=== PATIENT | male | born 1945 | race Caucasian/White ===

== ENCOUNTER 2016-12-08 21:27 | Emergency (ER) | payer OTHER, MEDICARE ==
[~2016-12-08] VITALS: Ht 170.2 cm; Wt 73.0 kg
[~2016-12-08 21:27] MED LIST: 5-HY50CA2 PO; ALPH50CA PO; ASPI-496 PO; B CO PO; CHOL5000 PO; GLUC1500 PO; IRON1TAB60 PO; MAGN100T PO; MELO-184 PO; MULT-297 PO; OMEG10003 PO; PHOS250T3 PO; PRAV20TA2 PO
[2016-12-08] MEDS ORDERED: SODIUM CHLORIDE 0.9% 1,000ML IVBOLUS ONE (22:30)
[2016-12-08] MEDS ORDERED: ONDANSETRON 2MG/ML, 2ML IVPush ONE (22:30)
[2016-12-08] MEDS ORDERED: SODIUM CHLORIDE FLUSH 10ML SYR IVF ONE (22:30)
[2016-12-08 22:55] LABS: ASPARTATE AMINO TRANSFERASE 22 U/L (15-37); BLOOD UREA NITROGEN 36 mg/dL (7-18)
[2016-12-08] MEDS ORDERED: OMNIPAQUE 350 MG/ML, 100ML BOTTLE ONE (23:00)
[2016-12-08 23:01] LABS: IS PT STATUS REG ER OR PRE ER? YES
[2016-12-08 23:45] VITALS: BP 125/70
== END 2016-12-09 00:30 | disposition home or self-care (01) ==
LOC: ED 22:38
DX: R55 Syncope and collapse (principal); E86.0 Dehydration; E86.9 Volume depletion, unspecified; R11.0 Nausea; E78.00 Pure hypercholesterolemia, unspecified
CPT/HCPCS: 36415; 70450; 70496; 70498; 71010; 80053; 82533; 83735; 84443; 84484; 85025; 93005; 96360; 99285; J7030; Q9967

== ENCOUNTER 2018-07-31 06:20 | Emergency (ER) | payer MEDICARE ==
[~2018-07-31] VITALS: Ht 172.7 cm; Wt 75.0 kg
[~2018-07-31 06:20] MED LIST changes: -B CO PO; +B CO1TAB38 PO; -GLUC1500 PO; +GLUC15006 PO; -MELO-184 PO; +MELO15TA24 PO
--- NOTE | 2018-07-31 06:37 | NUR ---
BIB [facility] FROM HOME, PT WAS BRUSHING TEETH AND HAD SUDDEN ONSET OF RIGHT ARM TINGLING, HEAD AND NECK PRESSURE. MONITORS APPLIED, SIDERAILS UP X2, CALL LIGHT WITHIN REACH. ERP AT BEDSIDE FOR EVAL
[2018-07-31] MEDS ORDERED: LIDOCAINE-MPF 1%, 5ML ONE (06:49)
[2018-07-31] MEDS ORDERED: LORazepam 2 MG/ML, 1ML ONE (06:50)
--- NOTE | 2018-07-31 06:55 | NUR ---
REPORT GIVEN TO GLO TELLEZ
[2018-07-31] MEDS ORDERED: LIDOCAINE 1%, 10ML INFIL ONE (07:00)
[2018-07-31] MEDS ORDERED: SODIUM CHLORIDE FLUSH 10ML SYR IVF ONE (07:00)
--- NOTE | 2018-07-31 07:01 | NUR ---
Report from Tiffany CODY.
[2018-07-31 07:12] LABS: BASOPHILS # (AUTO) 0.02 x10^3/uL (0-0.1); BASOPHILS % (AUTO) 0 % (0-1); EOSINOPHILS # (AUTO) 0.18 x10^3/uL (0-0.4); EOSINOPHILS % (AUTO) 3 % (1-7); LYMPHOCYTES # (AUTO) 1.11 x10^3/uL (1-3.4); LYMPHOCYTES % (AUTO) 20 % (22-44); MD NO; MEAN CORPUSCULAR HEMOGLOBIN 32.9 pg (27.5-34.5); MEAN CORPUSCULAR HGB CONC 34.6 g/dL (33.2-36.2); MEAN CORPUSCULAR VOLUME 94.9 fL (81-97); MEAN PLATELET VOLUME 7.8 fL (7.4-10.4); MONOCYTES # (AUTO) 0.36 x10^3/uL (0.2-0.8); MONOCYTES % (AUTO) 6 % (2-9); NEUTROPHILS # (AUTO) 3.92 x10^3/uL (1.8-6.8); NEUTROPHILS % (AUTO) 70 % (42-75); PLATELET COUNT 182 x10^3/uL (130-400); RED BLOOD COUNT 5.07 x10^6/uL (4.38-5.82); RED CELL DISTRIBUTION WIDTH 13.7 % (9.4-14.8)
[2018-07-31 07:24] LABS: ANION GAP 5 mmol/L (5-15); CALCIUM 9.3 mg/dL (8.5-10.1); CHLORIDE 109 mmol/L (98-107); CREATININE 0.99 mg/dL (0.7-1.3)
[2018-07-31 07:27] LABS: TROPONIN I < 0.015 ng/mL (0.000-0.045)
--- NOTE | 2018-07-31 07:46 | NUR ---
Pt is resting in bed, talking with staff, respirations equal and non labored. NAD. Pt is connected to the monitor. Call light within reach.
[2018-07-31 07:57] VITALS: BP 135/76
--- NOTE | 2018-07-31 08:57 | NUR ---
TASK RN: Patient/Caregiver given discharge instructions and they have confirmed that they understand the instructions. Patient ambulatory with steady gait.
== END 2018-07-31 08:58 | disposition home or self-care (01) ==
LOC: ED 07:18
DX: G44.221 Chronic tension-type headache, intractable (principal); M54.2 Cervicalgia; R55 Syncope and collapse; E78.00 Pure hypercholesterolemia, unspecified; F12.10 Cannabis abuse, uncomplicated; M19.90 Unspecified osteoarthritis, unspecified site
CPT/HCPCS: 36415; 80048; 82040; 84484; 85025; 93005; 99284

== ENCOUNTER 2021-03-22 08:05 | Inpatient (IN) | payer MEDICARE ==
[~2021-03-22] VITALS: Ht 172.7 cm; Wt 74.5 kg
--- NOTE | 2021-03-22 08:24 | NUR ---
FOUND OUT HAS COVID MAR 14 AND HAS BEEN CHECKING OXYGEN AT HOME. TODAY HIS MONITOR STATED OXYGEN LOW. ON 2 LITERS NASAL CANNULA.
[2021-03-22] MEDS ORDERED: DEXAMETHASONE 4 MG/ML, 1ML ONE (09:24)
[2021-03-22] MEDS ORDERED: CEFTRIAXONE 1,000 MG in DEXTROSE 5% 50 ML IVPB ONE ×2 (09:30→14:00)
[2021-03-22] MEDS ORDERED: SODIUM CHLORIDE FLUSH 10ML SYR IVF ONE (09:30)
[2021-03-22] MEDS ORDERED: DEXAMETHASONE 4 MG/ML, 1ML IV ONE (09:30)
[2021-03-22 10:14] LABS: BASOPHILS % (AUTO) 0 % (0-1); EOSINOPHILS % (AUTO) 0 % (1-7); LYMPHOCYTES % (AUTO) 5 % (22-44); MEAN CORPUSCULAR HEMOGLOBIN 31.7 pg (27.5-34.5); MEAN CORPUSCULAR HGB CONC 33.7 g/dL (33.2-36.2); MEAN PLATELET VOLUME 8.3 fL (7.4-10.4); MONOCYTES % (AUTO) 3 % (2-9); NEUTROPHILS % (AUTO) 92 % (42-75); PLATELET COUNT 103 x10^3/uL (130-400); RED BLOOD COUNT 4.43 x10^6/uL (4.38-5.82)
[2021-03-22 10:26] LABS: ALBUMIN 2.7 g/dL (3.4-5.0); ANION GAP 4 mmol/L (5-15); CALCIUM 8.2 mg/dL (8.5-10.1); CHLORIDE 106 mmol/L (98-107); CREATININE 0.94 mg/dL (0.7-1.3)
--- NOTE | 2021-03-22 11:48 | NUR ---
ORDERED DIET TRAY. GOT URINAL. PATIENT ANGRY BED UNCOMFORTABLE AND THAT STAFF NOT RESPNDING IMMIDIATELY WHEN HE HITS CALL LIGHT. TRYING TO RESPOND QUICKLY ABLE. AIDET. APOLOGIZED.
[2021-03-22] MEDS ORDERED: ONDANSETRON 2MG/ML, 2ML IVPush PRN (14:00)
[2021-03-22] MEDS ORDERED: ENOXAPARIN 40 MG/0.4 ML SQ SCH (14:00)
[2021-03-22] MEDS ORDERED: ONDANSETRON ODT 4 MG PO PRN (14:00)
[2021-03-22] MEDS ORDERED: IBUPROFEN 600 MG TABLET PO PRN (14:00)
[2021-03-22 14:38] LABS: BILIRUBIN, DIRECT 0.1 mg/dL (0.1-0.2)
[2021-03-22 14:39] LABS: ALBUMIN 2.7 g/dL (3.4-5.0); BILIRUBIN,INDIRECT 0.3 mg/dL (0.0-2.0); BILIRUBIN,TOTAL 0.4 mg/dL (0.2-1.0); TOTAL PROTEIN 5.5 g/dL (6.4-8.2)
[2021-03-22] MEDS ORDERED: ENOXAPARIN 40 MG/0.4 ML ONE (14:48)
[2021-03-22] MEDS: ENOXAPARIN 40 MG/0.4 ML SQ SCH (14:57)
[2021-03-22] MEDS ORDERED: REMDESIVIR 200 MG in SODIUM CHLORIDE 0.9% 100 ML IVPB ONE (15:00)
[2021-03-22 15:46] VITALS: BP 121/68
[2021-03-22 16:06] LABS: HCT (SEDRATE) 42.9 % (39.2-51.8)
[2021-03-22] MEDS ORDERED: LATA2.5D4 EACHEYE (16:08)
[2021-03-22 17:25] VITALS: BP 121/59
[2021-03-22 17:41] VITALS: BP_SYST 111; BP_SYST 113; BP_DIAS 47; BP_DIAS 52
[2021-03-22 18:06] VITALS: BP 115/57
[2021-03-22 19:50] VITALS: BP 147/81
[2021-03-22] MEDS: ACETAMINOPHEN 325 MG TABLET PO PRN (20:27)
[2021-03-22] MEDS: GUAIFENESIN 100 MG/5 ML, 5ML UDC PO PRN (21:40)
[2021-03-23 01:19] VITALS: BP 120/60
[2021-03-23 05:44] LABS: BASOPHILS % (AUTO) 0 % (0-1); EOSINOPHILS % (AUTO) 0 % (1-7); LYMPHOCYTES % (AUTO) 10 % (22-44); MEAN CORPUSCULAR HEMOGLOBIN 31.9 pg (27.5-34.5); MEAN CORPUSCULAR HGB CONC 34.1 g/dL (33.2-36.2); MEAN PLATELET VOLUME 8.6 fL (7.4-10.4); MONOCYTES % (AUTO) 4 % (2-9); NEUTROPHILS % (AUTO) 86 % (42-75); PLATELET COUNT 103 x10^3/uL (130-400); RED BLOOD COUNT 4.44 x10^6/uL (4.38-5.82); RED CELL DISTRIBUTION WIDTH 13.8 % (9.4-14.8)
[2021-03-23 05:55] LABS: CHLORIDE 107 mmol/L (98-107)
[2021-03-23 06:14] LABS: ALANINE AMINOTRANSFERASE 44 U/L (12-78); ALBUMIN 2.4 g/dL (3.4-5.0); ALKALINE PHOSPHATASE 45 U/L (45-117); ANION GAP 9 mmol/L (5-15); BILIRUBIN,TOTAL 0.4 mg/dL (0.2-1.0); CALCIUM 8.3 mg/dL (8.5-10.1); CREATININE 0.81 mg/dL (0.7-1.3); TOTAL PROTEIN 5.3 g/dL (6.4-8.2)
[2021-03-23 07:46] VITALS: BP 114/62
[2021-03-23] MEDS: DEXAMETHASONE 4 MG/ML, 1ML IVPush SCH (08:39)
[2021-03-23] MEDS: THIAMINE 100MG TABLET PO SCH (08:40)
[2021-03-23] MEDS: CHOLECALCIFEROL 5,000u TAB PO SCH (08:40)
[2021-03-23] MEDS: AZITHROMYCIN 250 MG TABLET PO SCH (08:40)
[2021-03-23] MEDS: CEFTRIAXONE 2 GM in DEXTROSE 5% 50 ML IVPB SCH (08:40)
[2021-03-23] MEDS: ZINC SULFATE 220 MG CAPSULE PO SCH (08:40)
[2021-03-23] MEDS: ACETAMINOPHEN 325 MG TABLET PO PRN (08:40)
[2021-03-23] MEDS ORDERED: DEXAMETHASONE 4 MG/ML, 1ML IVPush SCH (09:00)
[2021-03-23] MEDS ORDERED: NAPROXEN 500 MG TABLET PO PRN (09:00)
[2021-03-23 12:21] VITALS: BP 121/68
[2021-03-23] MEDS: ENOXAPARIN 40 MG/0.4 ML SQ SCH (14:24)
[2021-03-23] MEDS: REMDESIVIR 100 MG in SODIUM CHLORIDE 0.9% 100 ML IVPB SCH (17:18)
[2021-03-23 18:54] VITALS: BP 120/67
[2021-03-23] MEDS: MELATONIN 5 MG TABLET PO SCH (19:45)
[2021-03-23] MEDS: ASCORBIC ACID 500 MG TABLET PO SCH (19:45)
[2021-03-23] MEDS: GUAIFENESIN 100 MG/5 ML, 5ML UDC PO PRN (20:01)
[2021-03-23] MEDS: LATANOPROST OPHTH 0.005%, 2.5ML EACHEYE SCH (22:11)
[2021-03-24 01:30] VITALS: BP 126/70
[2021-03-24 05:41] LABS: BASOPHILS % (AUTO) 0 % (0-1); EOSINOPHILS % (AUTO) 0 % (1-7); LYMPHOCYTES % (AUTO) 7 % (22-44); MEAN CORPUSCULAR HEMOGLOBIN 32.9 pg (27.5-34.5); MEAN PLATELET VOLUME 8.6 fL (7.4-10.4); MONOCYTES % (AUTO) 5 % (2-9); NEUTROPHILS % (AUTO) 88 % (42-75); PLATELET COUNT 133 x10^3/uL (130-400); RED BLOOD COUNT 4.61 x10^6/uL (4.38-5.82); RED CELL DISTRIBUTION WIDTH 13.8 % (9.4-14.8)
[2021-03-24 05:48] LABS: CHLORIDE 109 mmol/L (98-107)
[2021-03-24 06:12] LABS: ALANINE AMINOTRANSFERASE 50 U/L (12-78); ALBUMIN 2.4 g/dL (3.4-5.0); ALKALINE PHOSPHATASE 47 U/L (45-117); ANION GAP 7 mmol/L (5-15); BILIRUBIN,TOTAL 0.4 mg/dL (0.2-1.0); CALCIUM 8.3 mg/dL (8.5-10.1); CREATININE 1.02 mg/dL (0.7-1.3); TOTAL PROTEIN 5.4 g/dL (6.4-8.2)
[2021-03-24 08:33] VITALS: BP 123/68
[2021-03-24] MEDS: THIAMINE 100MG TABLET PO SCH (08:37)
[2021-03-24] MEDS: DEXAMETHASONE 4 MG/ML, 1ML IVPush SCH (08:37)
[2021-03-24] MEDS: AZITHROMYCIN 250 MG TABLET PO SCH (08:37)
[2021-03-24] MEDS: ASCORBIC ACID 500 MG TABLET PO SCH ×2 (08:37→20:11)
[2021-03-24] MEDS: ZINC SULFATE 220 MG CAPSULE PO SCH (08:37)
[2021-03-24] MEDS: CHOLECALCIFEROL 5,000u TAB PO SCH (08:37)
[2021-03-24] MEDS: CEFTRIAXONE 2 GM in DEXTROSE 5% 50 ML IVPB SCH (08:48)
[2021-03-24] MEDS: ACETAMINOPHEN 325 MG TABLET PO PRN ×2 (08:48→20:11)
[2021-03-24] MEDS: TIMOLOL OPHTH 0.25%, 5ML OP SCH ×2 (10:37→12:12)
[2021-03-24] MEDS: ENOXAPARIN 40 MG/0.4 ML SQ SCH (12:12)
[2021-03-24 13:47] VITALS: BP 130/64
[2021-03-24] MEDS: REMDESIVIR 100 MG in SODIUM CHLORIDE 0.9% 100 ML IVPB SCH (17:30)
[2021-03-24 19:43] VITALS: BP 129/67
[2021-03-24] MEDS: LATANOPROST OPHTH 0.005%, 2.5ML EACHEYE SCH (20:08)
[2021-03-24] MEDS: MELATONIN 5 MG TABLET PO SCH (20:10)
[2021-03-24] MEDS: PRAVASTATIN 20 MG TABLET PO SCH (20:11)
[2021-03-25] VITALS (7 sets, daily range): BP systolic 94–168; BP diastolic 54–70
[2021-03-25 05:50] LABS: BASOPHILS % (AUTO) 0 % (0-1); EOSINOPHILS % (AUTO) 0 % (1-7); LYMPHOCYTES % (AUTO) 4 % (22-44); MEAN CORPUSCULAR HEMOGLOBIN 32.2 pg (27.5-34.5); MEAN CORPUSCULAR HGB CONC 34.4 g/dL (33.2-36.2); MEAN PLATELET VOLUME 8.3 fL (7.4-10.4); MONOCYTES % (AUTO) 5 % (2-9); NEUTROPHILS % (AUTO) 91 % (42-75); PLATELET COUNT 159 x10^3/uL (130-400); RED BLOOD COUNT 4.47 x10^6/uL (4.38-5.82); RED CELL DISTRIBUTION WIDTH 14.2 % (9.4-14.8)
[2021-03-25 06:11] LABS: ALBUMIN 2.4 g/dL (3.4-5.0); ANION GAP 8 mmol/L (5-15); CALCIUM 8.1 mg/dL (8.5-10.1); CHLORIDE 111 mmol/L (98-107)
[2021-03-25 06:23] LABS: ALANINE AMINOTRANSFERASE 46 U/L (12-78); ALKALINE PHOSPHATASE 46 U/L (45-117); BILIRUBIN,TOTAL 0.2 mg/dL (0.2-1.0); CREATININE 0.96 mg/dL (0.7-1.3); TOTAL PROTEIN 5.3 g/dL (6.4-8.2)
[2021-03-25] MEDS: THIAMINE 100MG TABLET PO SCH (08:47)
[2021-03-25] MEDS: CHOLECALCIFEROL 5,000u TAB PO SCH (08:47)
[2021-03-25] MEDS: AZITHROMYCIN 250 MG TABLET PO SCH (08:47)
[2021-03-25] MEDS: DEXAMETHASONE 4 MG/ML, 1ML IVPush SCH (08:47)
[2021-03-25] MEDS: ASCORBIC ACID 500 MG TABLET PO SCH ×2 (08:47→20:37)
[2021-03-25] MEDS: TIMOLOL OPHTH 0.25%, 5ML OP SCH ×2 (08:48→10:35)
[2021-03-25] MEDS: ZINC SULFATE 220 MG CAPSULE PO SCH (08:48)
[2021-03-25] MEDS: CEFTRIAXONE 2 GM in DEXTROSE 5% 50 ML IVPB SCH (09:13)
[2021-03-25] MEDS ORDERED: NAPROXEN 500 MG TABLET PO PRN (09:30)
[2021-03-25] MEDS: ACETAMINOPHEN 325 MG TABLET PO PRN ×2 (10:14→17:45)
[2021-03-25] MEDS: NAPROXEN 250 MG TABLET PO PRN (10:34)
[2021-03-25] MEDS: FUROSEMIDE 40 MG TABLET PO SCH (12:27)
[2021-03-25] MEDS: ENOXAPARIN 40 MG/0.4 ML SQ SCH (14:14)
[2021-03-25] MEDS: REMDESIVIR 100 MG in SODIUM CHLORIDE 0.9% 100 ML IVPB SCH (17:00)
[2021-03-25] MEDS: LATANOPROST OPHTH 0.005%, 2.5ML EACHEYE SCH (17:44)
[2021-03-25] MEDS: PRAVASTATIN 20 MG TABLET PO SCH (17:45)
[2021-03-25] MEDS: MELATONIN 5 MG TABLET PO SCH (20:37)
[2021-03-25] MEDS ORDERED: ATROPINE SYRINGE 0.1 MG/ML, 10ML IVPush ONE (22:00)
[2021-03-25 22:25] LABS: BASOPHILS % (AUTO) 0 % (0-1); EOSINOPHILS % (AUTO) 0 % (1-7); LYMPHOCYTES % (AUTO) 5 % (22-44); MEAN CORPUSCULAR HEMOGLOBIN 32.4 pg (27.5-34.5); MEAN CORPUSCULAR HGB CONC 34.8 g/dL (33.2-36.2); MEAN PLATELET VOLUME 8.2 fL (7.4-10.4); MONOCYTES % (AUTO) 5 % (2-9); NEUTROPHILS % (AUTO) 90 % (42-75); PLATELET COUNT 188 x10^3/uL (130-400); RED BLOOD COUNT 4.73 x10^6/uL (4.38-5.82); RED CELL DISTRIBUTION WIDTH 14.1 % (9.4-14.8)
[2021-03-25 22:34] LABS: ALANINE AMINOTRANSFERASE 65 U/L (12-78); ALBUMIN 2.7 g/dL (3.4-5.0); ANION GAP 5 mmol/L (5-15); CALCIUM 7.9 mg/dL (8.5-10.1); CHLORIDE 109 mmol/L (98-107); CREATININE 1.22 mg/dL (0.7-1.3)
[2021-03-25 22:39] LABS: ALKALINE PHOSPHATASE 48 U/L (45-117); BILIRUBIN,TOTAL 0.2 mg/dL (0.2-1.0); TOTAL PROTEIN 5.5 g/dL (6.4-8.2); TROPONIN I < 0.015 ng/mL (0.000-0.045)
[2021-03-25] MEDS ORDERED: hydrALAzine 20 MG/ML, 1ML IV ONE (23:30)
[2021-03-26] VITALS (8 sets, daily range): BP systolic 97–167; BP diastolic 51–76
[2021-03-26] MEDS ORDERED: ATROPINE SYRINGE 0.1 MG/ML, 10ML IVPush ONE ×2 (04:31→21:30)
[2021-03-26] MEDS ORDERED: ATROPINE SYRINGE 0.1 MG/ML, 10ML ONE (04:37)
[2021-03-26 04:39] LABS: BASOPHILS % (AUTO) 0 % (0-1); EOSINOPHILS % (AUTO) 0 % (1-7); LYMPHOCYTES % (AUTO) 5 % (22-44); MEAN CORPUSCULAR HEMOGLOBIN 31.9 pg (27.5-34.5); MEAN CORPUSCULAR HGB CONC 34.4 g/dL (33.2-36.2); MEAN PLATELET VOLUME 8.1 fL (7.4-10.4); MONOCYTES % (AUTO) 5 % (2-9); NEUTROPHILS % (AUTO) 90 % (42-75); PLATELET COUNT 184 x10^3/uL (130-400); RED BLOOD COUNT 4.43 x10^6/uL (4.38-5.82)
[2021-03-26 04:55] LABS: CALCIUM 7.7 mg/dL (8.5-10.1); CHLORIDE 110 mmol/L (98-107)
[2021-03-26 05:03] LABS: ALANINE AMINOTRANSFERASE 63 U/L (12-78); ALBUMIN 2.3 g/dL (3.4-5.0); ALKALINE PHOSPHATASE 41 U/L (45-117); ANION GAP 8 mmol/L (5-15); BILIRUBIN,TOTAL 0.2 mg/dL (0.2-1.0); CREATININE 1.01 mg/dL (0.7-1.3); TOTAL PROTEIN 4.8 g/dL (6.4-8.2)
[2021-03-26] MEDS ORDERED: GLUCAGON 1 MG IM PRN (07:00)
[2021-03-26] MEDS ORDERED: DEXTROSE 50%, 50ML SYRINGE IVPush PRN (07:00)
[2021-03-26] MEDS ORDERED: DEXTROSE 4 GM TAB.CHEW PO PRN (07:00)
[2021-03-26] MEDS ORDERED: POTASSIUM CHLORIDE 40 MEQ in SODIUM CHLORIDE 0.9% 500 ML IV ONE (07:00)
[2021-03-26] MEDS: INSULIN LISPRO 100 UNITS/ML, PEN SQ-INSULIN SCH ×4 (07:00→19:59)
[2021-03-26] MEDS: ASCORBIC ACID 500 MG TABLET PO SCH ×2 (08:48→19:57)
[2021-03-26] MEDS: DEXAMETHASONE 4 MG/ML, 1ML IVPush SCH (08:48)
[2021-03-26] MEDS: AZITHROMYCIN 250 MG TABLET PO SCH (08:48)
[2021-03-26] MEDS: FUROSEMIDE 40 MG TABLET PO SCH (08:48)
[2021-03-26] MEDS: ZINC SULFATE 220 MG CAPSULE PO SCH (08:48)
[2021-03-26] MEDS: CHOLECALCIFEROL 5,000u TAB PO SCH (08:48)
[2021-03-26] MEDS: THIAMINE 100MG TABLET PO SCH (08:48)
[2021-03-26] MEDS: SODIUM CHLORIDE FLUSH 10ML SYR IVF SCH ×2 (08:49→20:01)
[2021-03-26] MEDS: NAPROXEN 250 MG TABLET PO PRN (08:59)
[2021-03-26 10:09] LABS: TROPONIN I 0.018 ng/mL (0.000-0.045)
[2021-03-26] MEDS ORDERED: GUAIFENESIN 100 MG/5 ML, 10ML UDC ONE (11:28)
[2021-03-26] MEDS: GUAIFENESIN 100 MG/5 ML, 5ML UDC PO PRN (11:30)
[2021-03-26] MEDS: CEFTRIAXONE 2 GM in DEXTROSE 5% 50 ML IVPB SCH (11:31)
[2021-03-26] MEDS: ACETAMINOPHEN 325 MG TABLET PO PRN ×2 (11:35→19:57)
[2021-03-26] MEDS ORDERED: BISACODYL 10 MG SUPP PR PRN (12:00)
[2021-03-26] MEDS ORDERED: DOCUSATE 100 MG CAPSULE PO PRN (12:00)
[2021-03-26] MEDS ORDERED: POLYETHYLENE GLYCOL 17 GM PACKET PO PRN (12:00)
[2021-03-26] MEDS: POLYETHYLENE GLYCOL 17 GM PACKET PO SCH (12:29)
[2021-03-26] MEDS: ENOXAPARIN 40 MG/0.4 ML SQ SCH (13:36)
[2021-03-26] MEDS: REMDESIVIR 100 MG in SODIUM CHLORIDE 0.9% 100 ML IVPB SCH (17:36)
[2021-03-26] MEDS: PRAVASTATIN 20 MG TABLET PO SCH (19:57)
[2021-03-26] MEDS: MELATONIN 5 MG TABLET PO SCH (19:57)
[2021-03-26] MEDS: LATANOPROST OPHTH 0.005%, 2.5ML EACHEYE SCH (20:00)
[2021-03-27 00:35] VITALS: BP 148/75
[2021-03-27 08:14] VITALS: BP 144/68
[2021-03-27] MEDS: SODIUM CHLORIDE FLUSH 10ML SYR IVF SCH ×2 (08:30→20:03)
[2021-03-27] MEDS: INSULIN LISPRO 100 UNITS/ML, PEN SQ-INSULIN SCH ×4 (08:30→20:07)
[2021-03-27] MEDS: AZITHROMYCIN 250 MG TABLET PO SCH (08:31)
[2021-03-27] MEDS: ZINC SULFATE 220 MG CAPSULE PO SCH (08:31)
[2021-03-27] MEDS: CHOLECALCIFEROL 5,000u TAB PO SCH (08:31)
[2021-03-27] MEDS: THIAMINE 100MG TABLET PO SCH (08:31)
[2021-03-27] MEDS: POLYETHYLENE GLYCOL 17 GM PACKET PO SCH (08:31)
[2021-03-27] MEDS: ASCORBIC ACID 500 MG TABLET PO SCH ×2 (08:31→20:04)
[2021-03-27] MEDS: DEXAMETHASONE 4 MG/ML, 1ML IVPush SCH (08:31)
[2021-03-27] MEDS: FUROSEMIDE 40 MG TABLET PO SCH (08:31)
[2021-03-27] MEDS ORDERED: ATROPINE SYRINGE 0.1 MG/ML, 10ML ONE (11:09)
[2021-03-27 11:15] LABS: BASOPHILS % (AUTO) 0 % (0-1); EOSINOPHILS % (AUTO) 0 % (1-7); LYMPHOCYTES % (AUTO) 6 % (22-44); MEAN CORPUSCULAR HEMOGLOBIN 32.7 pg (27.5-34.5); MEAN CORPUSCULAR HGB CONC 35.1 g/dL (33.2-36.2); MEAN PLATELET VOLUME 8.3 fL (7.4-10.4); MONOCYTES % (AUTO) 4 % (2-9); NEUTROPHILS % (AUTO) 90 % (42-75); PLATELET COUNT 243 x10^3/uL (130-400); RED BLOOD COUNT 4.86 x10^6/uL (4.38-5.82); RED CELL DISTRIBUTION WIDTH 14.3 % (9.4-14.8)
[2021-03-27 11:19] LABS: ALANINE AMINOTRANSFERASE 135 U/L (12-78); ALBUMIN 2.7 g/dL (3.4-5.0); ANION GAP 8 mmol/L (5-15); CALCIUM 8.4 mg/dL (8.5-10.1); CHLORIDE 106 mmol/L (98-107)
[2021-03-27 11:22] LABS: ALKALINE PHOSPHATASE 49 U/L (45-117); BILIRUBIN,TOTAL 0.5 mg/dL (0.2-1.0); CREATININE 0.96 mg/dL (0.7-1.3); TOTAL PROTEIN 5.4 g/dL (6.4-8.2)
[2021-03-27] MEDS: CEFTRIAXONE 2 GM in DEXTROSE 5% 50 ML IVPB SCH (11:49)
[2021-03-27 13:07] VITALS: BP 145/73
[2021-03-27] MEDS: ACETAMINOPHEN 325 MG TABLET PO PRN ×2 (13:53→20:07)
[2021-03-27] MEDS: ENOXAPARIN 40 MG/0.4 ML SQ SCH (13:53)
[2021-03-27 18:49] VITALS: BP 126/66
[2021-03-27] MEDS: LATANOPROST OPHTH 0.005%, 2.5ML EACHEYE SCH (20:03)
[2021-03-27] MEDS: MELATONIN 5 MG TABLET PO SCH (20:04)
[2021-03-27] MEDS: PRAVASTATIN 20 MG TABLET PO SCH (20:04)
[2021-03-27] MEDS ORDERED: INSULIN GLARGINE 100 UNITS/ML, PEN SQ-INSULIN SCH (21:00)
[2021-03-28 00:54] VITALS: BP 136/72
[2021-03-28 06:10] LABS: CHLORIDE 107 mmol/L (98-107)
[2021-03-28 06:19] LABS: ALANINE AMINOTRANSFERASE 95 U/L (12-78); ALBUMIN 2.2 g/dL (3.4-5.0); ALKALINE PHOSPHATASE 46 U/L (45-117); ANION GAP 5 mmol/L (5-15); BILIRUBIN,TOTAL 0.3 mg/dL (0.2-1.0); CALCIUM 7.8 mg/dL (8.5-10.1); CREATININE 0.99 mg/dL (0.7-1.3); TOTAL PROTEIN 4.9 g/dL (6.4-8.2)
[2021-03-28] MEDS: INSULIN LISPRO 100 UNITS/ML, PEN SQ-INSULIN SCH ×3 (07:00→16:00)
[2021-03-28] MEDS ORDERED: GUAI100L11 PO (08:02)
[2021-03-28] MEDS ORDERED: THIA100T67 PO (08:02)
[2021-03-28] MEDS ORDERED: ASCO500T9 PO (08:02)
[2021-03-28] MEDS ORDERED: ZINC220C8 PO (08:02)
[2021-03-28 08:04] VITALS: BP 149/75
[2021-03-28] MEDS: CHOLECALCIFEROL 5,000u TAB PO SCH (08:30)
[2021-03-28] MEDS: DEXAMETHASONE 4 MG/ML, 1ML IVPush SCH (08:30)
[2021-03-28] MEDS: ZINC SULFATE 220 MG CAPSULE PO SCH (08:30)
[2021-03-28] MEDS: FUROSEMIDE 40 MG TABLET PO SCH (08:30)
[2021-03-28] MEDS: THIAMINE 100MG TABLET PO SCH (08:30)
[2021-03-28] MEDS: ASCORBIC ACID 500 MG TABLET PO SCH (08:30)
[2021-03-28] MEDS: POLYETHYLENE GLYCOL 17 GM PACKET PO SCH (08:32)
[2021-03-28] MEDS: SODIUM CHLORIDE FLUSH 10ML SYR IVF SCH (08:32)
[2021-03-28] MEDS: ACETAMINOPHEN 325 MG TABLET PO PRN (08:38)
[2021-03-28] MEDS ORDERED: LATA2.5D4 EACHEYE (08:40)
[2021-03-28 13:36] VITALS: BP 119/67
[2021-03-28] MEDS: ENOXAPARIN 40 MG/0.4 ML SQ SCH (14:00)
== END 2021-03-28 16:45 | disposition home or self-care (01) | DRG 177 ==
LOC: ED 08:32 → ORIP 12:15 → SUATTDRO 13:20 → 3N 15:04 → 5SO 03-25 22:26 → 3N 03-25 22:27 → 5SO 03-25 22:39
PROVIDERS: ADMIT Internal Medicine; ATTEND Family Medicine
PROC: XW033E5 Introduction of Remdesivir Anti-infective into Peripheral Vein, Percutaneous Approach, New Technology Group 5 (ICD-10-PCS; principal; 2021-03-22)
DX: U07.1 COVID-19 (principal); J12.82 Pneumonia due to coronavirus disease 2019; J96.01 Acute respiratory failure with hypoxia; E78.5 Hyperlipidemia, unspecified; E87.6 Hypokalemia; I10 Essential (primary) hypertension; Z66 Do not resuscitate; F41.9 Anxiety disorder, unspecified; Z80.42 Family history of malignant neoplasm of prostate; Z87.891 Personal history of nicotine dependence; Z80.6 Family history of leukemia; Z82.49 Family history of ischemic heart disease and other diseases of the circulatory system; Z79.899 Other long term (current) drug therapy
CPT/HCPCS: 36415; 36600; 71045; 80048; 80053; 80076; 82040; 82728; 82803; 82962; 83615; 83735; 84100; 84145; 84484; 85025; 85379; 85651; 86140; 93005; 96365; 96366; 99285; G0378; J0461; J0696; J1100; J1650; J3480; J0360; J1815; J7040

== ENCOUNTER 2021-04-05 15:47 | Inpatient (IN) | payer MEDICARE ==
[~2021-04-05] VITALS: Ht 177.8 cm; Wt 74.5 kg
[~2021-04-05 15:47] MED LIST changes: +ASCO500T9 PO; +GUAI100L11 PO; +LATA2.5D4 EACHEYE; +THIA100T67 PO; +ZINC220C8 PO
--- NOTE | 2021-04-05 15:55 | NUR ---
PT BIB EMS FOR COUGHING UP BLOOD. PT DISCHARGED FROM [facility] 03/30/21. PT DX WITH COVID 03/16/2021. PT STATES HE WAS FEELING BETTER AFTER BEING DISCHARGED, BUT HAS STARTED TO FEEL POORLY AGAIN. PT BEGAN COUGHING UP BLOOD, BRIGHT RED, WITH CLOTS TODAY. PT STILL ON O2 FROM DISCHARGE 3 LPM VIA NC. NO FURTHER INTERVENTIONS BY EMS. PT RAILS UP, CALL LIGHT AND BELONGINGS IN REACH. AWAITING FURTHER ORDERS.
[2021-04-05] MEDS ORDERED: SODIUM CHLORIDE FLUSH 10ML SYR IVF ONE (16:30)
[2021-04-05 16:47] LABS: BASOPHILS % (AUTO) 1 % (0-1); EOSINOPHILS % (AUTO) 1 % (1-7); LYMPHOCYTES % (AUTO) 11 % (22-44); MEAN CORPUSCULAR HEMOGLOBIN 31.6 pg (27.5-34.5); MEAN CORPUSCULAR HGB CONC 33.8 g/dL (33.2-36.2); MEAN PLATELET VOLUME 8.2 fL (7.4-10.4); MONOCYTES % (AUTO) 11 % (2-9); NEUTROPHILS % (AUTO) 76 % (42-75); PLATELET COUNT 273 x10^3/uL (130-400); RED BLOOD COUNT 4.56 x10^6/uL (4.38-5.82); RED CELL DISTRIBUTION WIDTH 13.9 % (9.4-14.8)
[2021-04-05 16:54] LABS: ALANINE AMINOTRANSFERASE 76 U/L (12-78); ALBUMIN 1.9 g/dL (3.4-5.0); ANION GAP 4 mmol/L (5-15); CALCIUM 8.4 mg/dL (8.5-10.1); CHLORIDE 107 mmol/L (98-107); CREATININE 0.79 mg/dL (0.7-1.3)
[2021-04-05 16:59] LABS: ALKALINE PHOSPHATASE 55 U/L (45-117); BILIRUBIN,TOTAL 0.4 mg/dL (0.2-1.0); TOTAL PROTEIN 5.8 g/dL (6.4-8.2); TROPONIN I 0.036 ng/mL (0.000-0.045)
[2021-04-05] MEDS ORDERED: AZITHROMYCIN 500 MG in SODIUM CHLORIDE 0.9% 250 ML IV ONE (17:00)
[2021-04-05] MEDS ORDERED: CEFTRIAXONE 1,000 MG in DEXTROSE 5% 50 ML IVPB ONE (17:00)
[2021-04-05] MEDS ORDERED: OMNIPAQUE 350 MG/ML, 75ML BOTTLE ONE (17:29)
[2021-04-05] MEDS ORDERED: BISACODYL 10 MG SUPP PR PRN (18:00)
[2021-04-05] MEDS ORDERED: CEFTRIAXONE 1,000 MG in DEXTROSE 5% 50 ML IVPB SCH (18:00)
[2021-04-05] MEDS ORDERED: AZITHROMYCIN 500 MG in SODIUM CHLORIDE 0.9% 250 ML IV SCH (18:00)
[2021-04-05] MEDS ORDERED: POLYETHYLENE GLYCOL 17 GM PACKET PO PRN (18:00)
[2021-04-05] MEDS ORDERED: ONDANSETRON 2MG/ML, 2ML IVPush PRN (18:00)
[2021-04-05] MEDS ORDERED: GUAIFENESIN/DM 200-20MG, 10ML UDC PO PRN (18:00)
[2021-04-05 18:29] LABS: INTERNATIONAL NORMALIZED RATIO 1.39 (0.93-1.1); PROTHROMBIN TIME 14.6 Seconds (9.6-11.5)
--- NOTE | 2021-04-05 19:02 | NUR ---
Report from Laureen CODY
[2021-04-05] MEDS ORDERED: ASCORBIC ACID 500 MG TABLET ONE (20:29)
--- NOTE | 2021-04-05 20:30 | NUR ---
request for night time meds sent to pharmacy
--- NOTE | 2021-04-05 20:40 | NUR ---
pt placed in hospital bed
[2021-04-05] MEDS: LATANOPROST OPHTH 0.005%, 2.5ML EACHEYE SCH (20:46)
[2021-04-05] MEDS: PRAVASTATIN 20 MG TABLET PO SCH (20:46)
[2021-04-05] MEDS: ASCORBIC ACID 500 MG TABLET PO SCH (20:46)
[2021-04-05] MEDS: MAGNESIUM GLYCINATE HOMEMEDPO SCH (21:00)
[2021-04-05] MEDS: HYDROXYTRYPTOPHAN HOMEMEDPO SCH (21:00)
[2021-04-05] MEDS ORDERED: LATANOPROST OPHTH 0.005%, 2.5ML EACHEYE SCH (21:00)
--- NOTE | 2021-04-05 21:39 | NUR ---
report to Erasto CODY
[2021-04-05 22:41] VITALS: BP 145/88
[2021-04-05] MEDS: K-PHOS NEUTRAL 250MG TAB PO SCH (23:10)
[2021-04-05] MEDS: MELATONIN 5 MG TABLET PO PRN (23:10)
[2021-04-06 00:16] VITALS: BP 135/70
[2021-04-06 07:37] LABS: BASOPHILS % (AUTO) 0 % (0-1); EOSINOPHILS % (AUTO) 1 % (1-7); LYMPHOCYTES % (AUTO) 12 % (22-44); MEAN CORPUSCULAR HEMOGLOBIN 31.9 pg (27.5-34.5); MEAN CORPUSCULAR HGB CONC 34.2 g/dL (33.2-36.2); MONOCYTES % (AUTO) 10 % (2-9); NEUTROPHILS % (AUTO) 76 % (42-75); PLATELET COUNT 236 x10^3/uL (130-400); RED BLOOD COUNT 4.37 x10^6/uL (4.38-5.82); RED CELL DISTRIBUTION WIDTH 13.8 % (9.4-14.8)
[2021-04-06 07:46] LABS: CHLORIDE 109 mmol/L (98-107)
[2021-04-06 07:53] LABS: ANION GAP 5 mmol/L (5-15); CALCIUM 8.1 mg/dL (8.5-10.1); CREATININE 0.91 mg/dL (0.7-1.3)
[2021-04-06 07:54] VITALS: BP 133/75
[2021-04-06] MEDS: ZINC SULFATE 220 MG CAPSULE PO SCH (08:52)
[2021-04-06] MEDS: ASCORBIC ACID 500 MG TABLET PO SCH ×2 (08:52→20:55)
[2021-04-06] MEDS: MULTIVITAMINS/MINERALS TABLET PO SCH (08:52)
[2021-04-06] MEDS: K-PHOS NEUTRAL 250MG TAB PO SCH ×2 (08:52→20:55)
[2021-04-06] MEDS: THIAMINE 100MG TABLET PO SCH (08:52)
[2021-04-06] MEDS: MULTIVITS,STRESS FORMULA 1 TABLET PO SCH (08:53)
[2021-04-06] MEDS: SENNA/DOCUSATE TABLET PO SCH (08:53)
[2021-04-06] MEDS: CHOLECALCIFEROL 5,000u TAB PO SCH (08:53)
[2021-04-06] MEDS: MAGNESIUM GLYCINATE HOMEMEDPO SCH ×2 (09:00→21:00)
[2021-04-06] MEDS: ACETAMINOPHEN 325 MG TABLET PO PRN ×2 (09:00→20:55)
[2021-04-06] MEDS: ALPHA LIPOIC ACID 600 MG HOMEMEDPO SCH (09:00)
[2021-04-06] MEDS: HYDROXYTRYPTOPHAN HOMEMEDPO SCH ×3 (09:00→21:00)
[2021-04-06 13:21] VITALS: BP 148/83
[2021-04-06] MEDS: PIPERACILLIN/TAZO 3.375 GM in DEXTROSE 5% 50 ML IV SCH ×3 (16:06→21:25)
[2021-04-06] MEDS ORDERED: REMDESIVIR 200 MG in SODIUM CHLORIDE 0.9% 100 ML IVPB ONE (16:30)
[2021-04-06 19:54] VITALS: BP 159/81
[2021-04-06] MEDS: MELATONIN 5 MG TABLET PO PRN (20:56)
[2021-04-06] MEDS: LATANOPROST OPHTH 0.005%, 2.5ML EACHEYE SCH (21:00)
[2021-04-06] MEDS: PRAVASTATIN 20 MG TABLET PO SCH (21:05)
[2021-04-06] MEDS: GUAIFENESIN/DM 100-10MG, 5ML UDC PO PRN (21:25)
[2021-04-07 01:50] VITALS: BP 146/83
[2021-04-07] MEDS: PIPERACILLIN/TAZO 3.375 GM in DEXTROSE 5% 50 ML IV SCH ×4 (04:13→22:09)
[2021-04-07 05:34] LABS: CHLORIDE 110 mmol/L (98-107)
[2021-04-07 05:43] LABS: ALANINE AMINOTRANSFERASE 54 U/L (12-78); ALBUMIN 1.8 g/dL (3.4-5.0); ALKALINE PHOSPHATASE 45 U/L (45-117); ANION GAP 5 mmol/L (5-15); BILIRUBIN,TOTAL 0.4 mg/dL (0.2-1.0); CREATININE 0.99 mg/dL (0.7-1.3); TOTAL PROTEIN 5.2 g/dL (6.4-8.2)
[2021-04-07 08:34] VITALS: BP 162/85
[2021-04-07] MEDS: ALPHA LIPOIC ACID 600 MG HOMEMEDPO SCH (09:00)
[2021-04-07] MEDS: HYDROXYTRYPTOPHAN HOMEMEDPO SCH ×3 (09:00→20:39)
[2021-04-07] MEDS: MAGNESIUM GLYCINATE HOMEMEDPO SCH ×2 (09:00→20:39)
[2021-04-07] MEDS: MULTIVITAMINS/MINERALS TABLET PO SCH (09:48)
[2021-04-07] MEDS: K-PHOS NEUTRAL 250MG TAB PO SCH ×2 (09:48→20:38)
[2021-04-07] MEDS: MULTIVITS,STRESS FORMULA 1 TABLET PO SCH (09:48)
[2021-04-07] MEDS: CHOLECALCIFEROL 5,000u TAB PO SCH (09:48)
[2021-04-07] MEDS: ZINC SULFATE 220 MG CAPSULE PO SCH (09:48)
[2021-04-07] MEDS: ASCORBIC ACID 500 MG TABLET PO SCH ×2 (09:48→20:38)
[2021-04-07] MEDS: SENNA/DOCUSATE TABLET PO SCH (09:49)
[2021-04-07] MEDS: THIAMINE 100MG TABLET PO SCH (09:49)
[2021-04-07] MEDS ORDERED: ENOXAPARIN 40 MG/0.4 ML SQ SCH (13:00)
[2021-04-07 13:16] VITALS: BP 156/78
[2021-04-07] MEDS ORDERED: REMDESIVIR 100 MG in SODIUM CHLORIDE 0.9% 100 ML IVPB SCH (16:30)
[2021-04-07 20:28] VITALS: BP 126/68
[2021-04-07] MEDS: PRAVASTATIN 20 MG TABLET PO SCH (20:38)
[2021-04-07] MEDS: LATANOPROST OPHTH 0.005%, 2.5ML EACHEYE SCH (21:00)
[2021-04-07] MEDS: MELATONIN 5 MG TABLET PO PRN (22:09)
[2021-04-08 02:37] VITALS: BP 129/74
[2021-04-08] MEDS: PIPERACILLIN/TAZO 3.375 GM in DEXTROSE 5% 50 ML IV SCH ×4 (03:54→21:16)
[2021-04-08 06:38] LABS: HCT (SEDRATE) 39.5 % (39.2-51.8)
[2021-04-08 06:48] LABS: BASOPHILS % (AUTO) 1 % (0-1); EOSINOPHILS % (AUTO) 2 % (1-7); LYMPHOCYTES % (AUTO) 20 % (22-44); MEAN CORPUSCULAR HEMOGLOBIN 31.5 pg (27.5-34.5); MEAN CORPUSCULAR HGB CONC 33.7 g/dL (33.2-36.2); MEAN PLATELET VOLUME 7.6 fL (7.4-10.4); MONOCYTES % (AUTO) 11 % (2-9); NEUTROPHILS % (AUTO) 66 % (42-75); PLATELET COUNT 226 x10^3/uL (130-400); RED BLOOD COUNT 4.22 x10^6/uL (4.38-5.82); RED CELL DISTRIBUTION WIDTH 14.1 % (9.4-14.8)
[2021-04-08 06:49] LABS: D-DIMER 0.47 ug/mlFEU (0.00-0.52)
[2021-04-08 07:14] LABS: C-REACTIVE PROTEIN, QUANT 3.7 mg/dL (0.02-0.49)
[2021-04-08] MEDS: CHOLECALCIFEROL 5,000u TAB PO SCH (08:18)
[2021-04-08] MEDS: MAGNESIUM GLYCINATE HOMEMEDPO SCH ×2 (08:18→21:00)
[2021-04-08] MEDS: HYDROXYTRYPTOPHAN HOMEMEDPO SCH ×3 (08:18→21:00)
[2021-04-08] MEDS: MULTIVITAMINS/MINERALS TABLET PO SCH (08:18)
[2021-04-08] MEDS: ZINC SULFATE 220 MG CAPSULE PO SCH (08:18)
[2021-04-08] MEDS: K-PHOS NEUTRAL 250MG TAB PO SCH ×2 (08:18→21:17)
[2021-04-08] MEDS: ASCORBIC ACID 500 MG TABLET PO SCH ×2 (08:18→21:17)
[2021-04-08] MEDS: MULTIVITS,STRESS FORMULA 1 TABLET PO SCH (08:18)
[2021-04-08] MEDS: THIAMINE 100MG TABLET PO SCH (08:18)
[2021-04-08] MEDS: SENNA/DOCUSATE TABLET PO SCH (08:18)
[2021-04-08] MEDS: ACETAMINOPHEN 325 MG TABLET PO PRN ×2 (08:30→21:22)
[2021-04-08 08:34] VITALS: BP 139/75
[2021-04-08] MEDS: ALPHA LIPOIC ACID 600 MG HOMEMEDPO SCH (09:00)
[2021-04-08 13:56] VITALS: BP 136/78
[2021-04-08] MEDS: LATANOPROST OPHTH 0.005%, 2.5ML EACHEYE SCH (21:00)
[2021-04-08] MEDS: GUAIFENESIN/DM 100-10MG, 5ML UDC PO PRN (21:16)
[2021-04-08] MEDS: PRAVASTATIN 20 MG TABLET PO SCH (21:17)
[2021-04-08] MEDS: MELATONIN 5 MG TABLET PO PRN (21:17)
[2021-04-08 21:30] VITALS: BP 137/80
[2021-04-09 01:19] VITALS: BP 124/73
[2021-04-09] MEDS: PIPERACILLIN/TAZO 3.375 GM in DEXTROSE 5% 50 ML IV SCH ×3 (03:40→10:01)
[2021-04-09 08:01] VITALS: BP 144/83
[2021-04-09] MEDS: ASCORBIC ACID 500 MG TABLET PO SCH (08:51)
[2021-04-09] MEDS: K-PHOS NEUTRAL 250MG TAB PO SCH (08:51)
[2021-04-09] MEDS: MULTIVITAMINS/MINERALS TABLET PO SCH (08:51)
[2021-04-09] MEDS: ZINC SULFATE 220 MG CAPSULE PO SCH (08:51)
[2021-04-09] MEDS: THIAMINE 100MG TABLET PO SCH (08:51)
[2021-04-09] MEDS: MULTIVITS,STRESS FORMULA 1 TABLET PO SCH (08:52)
[2021-04-09] MEDS: CHOLECALCIFEROL 5,000u TAB PO SCH (08:52)
[2021-04-09] MEDS: MAGNESIUM GLYCINATE HOMEMEDPO SCH (09:00)
[2021-04-09] MEDS: SENNA/DOCUSATE TABLET PO SCH ×2 (09:00→10:01)
[2021-04-09] MEDS: ALPHA LIPOIC ACID 600 MG HOMEMEDPO SCH (09:00)
[2021-04-09] MEDS: HYDROXYTRYPTOPHAN HOMEMEDPO SCH (09:00)
== END 2021-04-09 13:19 | disposition home or self-care (01) | DRG 177 ==
LOC: ED 16:04 → EDIP 17:20 → 3N 22:55
PROVIDERS: ADMIT Internal Medicine; ATTEND Internal Medicine Infectious Disease
PROC: XW033E5 Introduction of Remdesivir Anti-infective into Peripheral Vein, Percutaneous Approach, New Technology Group 5 (ICD-10-PCS; principal; 2021-04-06)
DX: U07.1 COVID-19 (principal); J12.82 Pneumonia due to coronavirus disease 2019; E43 Unspecified severe protein-calorie malnutrition; J96.21 Acute and chronic respiratory failure with hypoxia; E78.5 Hyperlipidemia, unspecified; J43.0 Unilateral pulmonary emphysema [MacLeod's syndrome]; R55 Syncope and collapse; Z80.0 Family history of malignant neoplasm of digestive organs; Z82.49 Family history of ischemic heart disease and other diseases of the circulatory system; Z87.891 Personal history of nicotine dependence; Z68.23 Body mass index [BMI] 23.0-23.9, adult
CPT/HCPCS: 36415; 71045; 71275; 80048; 80053; 82728; 83605; 83615; 83735; 84145; 84484; 85025; 85379; 85384; 85610; 85651; 85730; 86140; 87040; 87081; 93005; 96365; G0378; J0456; J0696; J1650; J2543; Q9967; U0005; J7050; U0003